=== PATIENT | female | born 1960 | race Two or more races ===

== ENCOUNTER 2022-02-06 03:51 | Inpatient (IN) | payer MEDICAID ==
[~2022-02-06] VITALS: Ht 160 cm; Wt 66.5 kg
[2022-02-06] MEDS ORDERED: ONDANSETRON HCL 4 MG/2 ML VIAL IV ONE (04:30)
[2022-02-06] MEDS ORDERED: SODIUM CHLORIDE 0.9% 1,000 ML IV ONE ×4 (04:30→10:30)
[2022-02-06] MEDS ORDERED: MORPHINE SULFATE 4 MG/ML SYR/VIAL IV ONE (04:30)
[2022-02-06] MEDS ORDERED: metroNIDAZOLE 500MG/100ML 100 ML IV ONE (05:30)
[2022-02-06] MEDS ORDERED: cefTRIAXone 1GM/50ML D5W 50 ML IV ONE (05:30)
[2022-02-06 05:59] LABS: Potassium 3.9 mmol/L (3.5-5.1)
[2022-02-06 06:04] LABS: Albumin 4.6 g/dL (3.4-5.0); BUN/Creatinine Ratio 21.8; Calcium 10.6 mg/dL (8.5-10.1)
[2022-02-06 06:06] LABS: Bilirubin, Total 1.1 mg/dL (0.2-1.0)
[2022-02-06 06:20] LABS: Basophils # (auto) 0 10 ^3/uL (0-0.2); Basophils % (auto) 0.1 % (0.0-2.0); Eosinophils # (auto) 0 10 ^3/uL (0-0.8); Hematocrit 46.2 % (36.0-46.0); Hemoglobin 15.3 g/dL (12.2-16.2); Lymphocytes % (auto) 7.1 % (10.0-50.0); Mean Corpuscular Hemoglobin 28.4 pg (28.0-32.0); Mean Corpuscular Hgb Conc. 33.2 g/dL (32.0-36.0); Mean Corpuscular Volume 85.4 fL (80.0-100.0); Monocytes # (auto) 0.4 10 ^3/uL (0-1.3); Monocytes % (auto) 2.8 % (0.0-12.0); Neutrophils # (auto) 12.7 10 ^3/uL (1.6-8.6); Nucleated Red Blood Cells % 0.1 %; Red Blood Cells 5.41 10^6/uL (4.0-5.20); Red Cell Distribution Width 13.8 % (11.8-14.3); White Blood Cell 14.1 10^3/uL (4.4-10.8)
[2022-02-06 07:23] LABS: Urine Bacteria NONE SEEN /hpf (None Seen); Urine Blood Negative /uL (Negative); Urine Mucus FEW (None Seen); Urine Specific Gravity 1.015 (1.001-1.035); Urine WBC 1 /hpf (0 - 5)
[2022-02-06 07:28] LABS: Lactic Acid w/Reflex 4.6 mmol/L (0.4-2.0)
[2022-02-06 07:35] LABS: INR 0.95 (0.9-1.15)
[2022-02-06] MEDS ORDERED: GASTROGRAFIN 120 ML SOL ONE (09:14)
[2022-02-06] MEDS ORDERED: MORPHINE SULFATE INJ 2 MG/ml SYRG IV PRN (09:30)
[2022-02-06 11:46] LABS: Cholesterol 326 mg/dL (< 200); HDL Cholesterol 54 mg/dL (40-59); LDL Cholesterol 238 mg/dL (< 100); Triglycerides 202 mg/dL (< 150)
[2022-02-06] MEDS: metroNIDAZOLE 500MG/100ML 100 ML IV SCH ×2 (14:31→21:47)
[2022-02-06 16:28] VITALS: BP 145/84
[2022-02-06 16:53] VITALS: BP 144/98
[2022-02-06] MEDS: hydrALAZINE HCL 20 MG/ML VL IV PRN (17:55)
[2022-02-06 22:00] VITALS: BP 159/105
[2022-02-07] MEDS: hydrALAZINE HCL 20 MG/ML VL IV PRN ×2 (00:11→16:43)
[2022-02-07 00:37] VITALS: BP 140/87
[2022-02-07 05:00] VITALS: BP 119/66
[2022-02-07] MEDS: metroNIDAZOLE 500MG/100ML 100 ML IV SCH ×3 (05:47→21:59)
[2022-02-07 06:40] LABS: Basophils # (auto) 0 10 ^3/uL (0-0.2); Basophils % (auto) 0.1 % (0.0-2.0); Eosinophils # (auto) 0 10 ^3/uL (0-0.8); Eosinophils % (auto) 0.2 % (0.0-7.0); Hematocrit 40.2 % (36.0-46.0); Hemoglobin 13.1 g/dL (12.2-16.2); Lymphocytes # (auto) 1.8 10 ^3/uL (0.4-5.4); Mean Corpuscular Hemoglobin 27.7 pg (28.0-32.0); Mean Corpuscular Hgb Conc. 32.6 g/dL (32.0-36.0); Mean Corpuscular Volume 85.1 fL (80.0-100.0); Monocytes # (auto) 0.5 10 ^3/uL (0-1.3); Monocytes % (auto) 4.8 % (0.0-12.0); Neutrophils # (auto) 8.6 10 ^3/uL (1.6-8.6); Neutrophils % (auto) 78.9 % (37.0-80.0); Nucleated Red Blood Cells % 0.1 %; Red Blood Cells 4.73 10^6/uL (4.0-5.20); Red Cell Distribution Width 13.9 % (11.8-14.3)
[2022-02-07 06:55] LABS: Albumin 3.4 g/dL (3.4-5.0); Potassium 3.2 mmol/L (3.5-5.1)
[2022-02-07 06:59] LABS: Bilirubin, Total 1.2 mg/dL (0.2-1.0); Total Protein 6.5 g/dL (6.4-8.2)
[2022-02-07 09:00] VITALS: BP 138/86
[2022-02-07 13:00] VITALS: BP 145/92
[2022-02-07] MEDS: ONDANSETRON HCL 4 MG/2 ML VIAL IV PRN (16:43)
[2022-02-07 17:00] VITALS: BP 167/114
[2022-02-07 22:00] VITALS: BP 145/88
[2022-02-07] MEDS ORDERED: SODIUM CHLORIDE 0.9% 1,000 ML IV SCH (22:00)
[2022-02-08 05:00] VITALS: BP 145/101
[2022-02-08] MEDS: metroNIDAZOLE 500MG/100ML 100 ML IV SCH ×2 (05:30→15:13)
[2022-02-08] MEDS: ONDANSETRON HCL 4 MG/2 ML VIAL IV PRN (05:37)
[2022-02-08 09:00] VITALS: BP 150/90
[2022-02-08] MEDS ORDERED: FAMO20TA10 PO (10:37)
[2022-02-08 13:00] VITALS: BP 167/100
[2022-02-08 15:05] VITALS: BP 130/85
[2022-02-08 16:56] VITALS: BP 135/99
== END 2022-02-08 18:45 | disposition home or self-care (01) | DRG 872 ==
LOC: ER 03:51 → OVERFLOW 09:24 → WEST WING 15:36
PROVIDERS: ADMIT Registered Nurse; ATTEND Internal Medicine
PROC: 0D9670Z Drainage of Stomach with Drainage Device, Via Natural or Artificial Opening (ICD-10-PCS; principal; 2022-02-06)
DX: A41.9 Sepsis, unspecified organism (principal); N39.0 Urinary tract infection, site not specified; K56.600 Partial intestinal obstruction, unspecified as to cause; E78.5 Hyperlipidemia, unspecified; N18.2 Chronic kidney disease, stage 2 (mild); Z20.822 Contact with and (suspected) exposure to COVID-19; I12.9 Hypertensive chronic kidney disease with stage 1 through stage 4 chronic kidney disease, or unspecified chronic kidney disease
CPT/HCPCS: 36415; 71045; 74176; 74250; 76705; 80053; 80061; 81001; 83036; 83605; 84484; 85025; 85610; 87040; 87086; 96361; 96365; 96367; 96375; G0378; J0696; J2405; J3490